=== PATIENT | male | born 1965 | race Caucasian/White ===

== ENCOUNTER 2022-01-03 11:43 | Emergency (ER) | payer OTHER, SELFPAY ==
[2022-01-03] MEDS ORDERED: Ibuprofen 800 MG TAB ONE (12:52)
[2022-01-03] MEDS ORDERED: Acetaminophen 500 MG TAB ONE (12:52)
== END 2022-01-03 13:17 | disposition home or self-care (01) ==
LOC: ERS 11:43
DX: M25.561 Pain in right knee (principal); W22.8XXA Striking against or struck by other objects, initial encounter; Y93.F9 Activity, other caregiving